=== PATIENT | male | born 1940 | race Caucasian/White ===

== ENCOUNTER 2019-04-26 13:31 | Day surgery (SDC) | payer MEDICARE, BC ==
[~2019-04-26] VITALS: Ht 180.3 cm; Wt 98.2 kg
[~2019-04-26 13:31] MED LIST: ASPI81EC PO; ATOR40TA PO; BROMFENAC SODIUM OP; Combigan Eye Dro5 ML OP; ERGO400 PO; FOLI1; LEVSOD100 PO; METTREX2.5; Methotrexa25 MG/1 ML; OMEPRAZOLE20 MG PO; PRED1SU BOTHEYES; ROSU10TA PO; SYNTHROID150 MC1 PO
--- NOTE | 2019-04-26 16:49 | NUR ---
04/26/19 9802 Vivi Stoner INJECTED 3 MLS NS INTO BX PORT PER ORDER FOR POLYPECTOMY
== END 2019-04-26 17:19 | disposition home or self-care (01) ==
LOC: ORSCSDS 13:31
PROVIDERS: Internal Medicine Gastroenterology
PROC: 0DBH8ZX Excision of Cecum, Via Natural or Artificial Opening Endoscopic, Diagnostic (ICD-10-PCS; principal; 2019-04-26 15:15)
PROC: 0DBL8ZX Excision of Transverse Colon, Via Natural or Artificial Opening Endoscopic, Diagnostic (ICD-10-PCS; principal; 2019-04-26 15:15)
DX: Z86.010 Personal history of colon polyps (principal); Z12.11 Encounter for screening for malignant neoplasm of colon; D12.0 Benign neoplasm of cecum; D12.3 Benign neoplasm of transverse colon; D12.4 Benign neoplasm of descending colon; K57.30 Diverticulosis of large intestine without perforation or abscess without bleeding; K64.8 Other hemorrhoids; K21.9 Gastro-esophageal reflux disease without esophagitis; E03.9 Hypothyroidism, unspecified; E78.5 Hyperlipidemia, unspecified; Z79.899 Other long term (current) drug therapy; Z79.82 Long term (current) use of aspirin
CPT/HCPCS: 88305; J2704; J7120

== ENCOUNTER → 2019-08-14 | Outpatient (CLI) | payer MEDICARE, BC | END | disposition home or self-care (01) | LOC: LAB SHORT 15:56 → PLD 15:56 | DX: D48.5 Neoplasm of uncertain behavior of skin (principal) | CPT/HCPCS: 88305 ==

== ENCOUNTER 2020-05-20 12:00 | Day surgery (SDC) | payer MEDICARE, BC ==
[~2020-05-20] VITALS: Ht 177.8 cm; Wt 98.2 kg
[~2020-05-20 12:00] MED LIST changes: +Aspir 8181 MG PO
--- NOTE | 2020-05-20 13:31 | NUR ---
05/20/20 1331 FABIAN WYNN DELAY IN START OF CASE DUE TO PRIOR CASE RUNNING LONG. PT NOTIFIED AND PROVIDED WARM BLANKET. ALL QUESTIONS ASKED AND ANSWERED
--- NOTE | 2020-05-20 14:48 | NUR ---
05/20/20 1448 Julia Hutchison 3 ML NACL USED FOR POLYP REMOVAL
== END 2020-05-20 15:14 | disposition home or self-care (01) ==
LOC: ORSCSDS 12:00
PROVIDERS: Internal Medicine Gastroenterology
PROC: 0DBH8ZX Excision of Cecum, Via Natural or Artificial Opening Endoscopic, Diagnostic (ICD-10-PCS; principal; 2020-05-20 13:15)
PROC: 0DBK8ZX Excision of Ascending Colon, Via Natural or Artificial Opening Endoscopic, Diagnostic (ICD-10-PCS; principal; 2020-05-20 13:15)
PROC: 0DBL8ZX Excision of Transverse Colon, Via Natural or Artificial Opening Endoscopic, Diagnostic (ICD-10-PCS; principal; 2020-05-20 13:15)
DX: Z86.010 Personal history of colon polyps (principal); D12.0 Benign neoplasm of cecum; D12.2 Benign neoplasm of ascending colon; D12.3 Benign neoplasm of transverse colon; K64.8 Other hemorrhoids; K57.30 Diverticulosis of large intestine without perforation or abscess without bleeding; I10 Essential (primary) hypertension; E78.5 Hyperlipidemia, unspecified; E03.9 Hypothyroidism, unspecified; Z79.899 Other long term (current) drug therapy; Z79.82 Long term (current) use of aspirin
CPT/HCPCS: 88305; J2704; J7120

== ENCOUNTER → 2020-06-30 | Outpatient (CLI) | payer MEDICARE, BC ==
[~2020-06-30] MED LIST changes: +ATOR20 PO; +EZET10 PO; +IBUP200 PO; +LATA.005SO BOTHEYES; +LEVSOD150 PO; +METHOTREXATE2.5 MG; +OMEP20ER PO; +TIMDOROPSO LEFTEYE; +[UNRECOGNIZED DRUG - REMARK] PO
[2020-06-30 10:16] LABS: BASOPHILS ABSOLUTE AUTO 0.05 K/mm3 (0.00-0.23); BASOPHILS PERCENT AUTO 1 % (0-2); EOSINOPHILS ABSOLUTE AUTO 0.19 K/mm3 (0.00-0.68); EOSINOPHILS PERCENT AUTO 3 % (0-6); Hemoglobin 14.3 g/dL (13.5-17.5); IMMATURE GRAN ABSOLUTE AUTO 0.04 K/mm3 (0.00-0.10); IMMATURE GRAN PERCENT AUTO 1 % (0-1); LYMPHOCYTES ABSOLUTE AUTO 1.65 K/mm3 (0.84-5.20); LYMPHOCYTES PERCENT AUTO 28 % (21-46); MONOCYTES ABSOLUTE AUTO 0.42 K/mm3 (0.16-1.47); MONOCYTES PERCENT AUTO 7 % (4-13); Mean Corpuscular HGB 33.2 pg (26.0-34.0); Mean Corpuscular Volume 97 fL (80-100); Mean Platelet Volume 11.2 fL (9.1-12.4); NEUTROPHILS ABSOLUTE AUTO 3.58 K/mm3 (1.96-9.15); NEUTROPHILS PERCENT AUTO 60 % (41-73); Platelet Count 198 K/mm3 (150-400); RDW Coefficient Variation 13.2 % (11.7-14.2); RDW Standard Deviation 46.6 fL (35.1-46.3); Red Blood Cell Count 4.31 M/mm3 (4.30-5.90); White Blood Cell Count 5.93 K/mm3 (4.00-11.30)
[2020-06-30 10:32] LABS: Alanine Aminotransfer (ALT/SGP 38 U/L (12-78); Albumin/Globulin Ratio 1.5 (0.8-1.8); Alk Phos 64 U/L (40-126); Anion Gap 7 mmol/L (6-16); Aspartate Aminotrans (AST/SGOT 19 U/L (12-37); Bilirubin, Total 0.7 mg/dL (0.1-1.0); Blood Urea Nitrogen 12 mg/dL (8-24); Bun/Creatinine Ratio 13.2 (12.0-20.0); CO2, Blood 29 mmol/L (21-32); Chloride, Blood 104 mmol/L (98-108); Creatinine, Blood 0.91 mg/dL (0.60-1.20); Globulin, Blood 2.7 g/dL (2.2-4.0); Glomerular Filtration Rate >60 (60-); Glucose, Blood 99 mg/dL (70-99); Potassium, Blood 4.4 mmol/L (3.5-5.5); Sodium, Blood 140 mmol/L (136-145); Total Protein, Blood 6.7 g/dL (6.4-8.2)
== END | disposition home or self-care (01) ==
LOC: LAB SHORT 09:56
PROVIDERS: Internal Medicine Rheumatology
DX: M05.79 Rheumatoid arthritis with rheumatoid factor of multiple sites without organ or systems involvement (principal)
CPT/HCPCS: 36415; 80053; 85025; 86140

== ENCOUNTER 2020-08-08 08:13 | Day surgery (SDC) | payer MEDICARE, BC ==
[~2020-08-08] VITALS: Ht 177.8 cm; Wt 100.7 kg
--- NOTE | 2020-08-08 09:40 | NUR ---
Ambulatory in Day Surgery History, Chart, Medications and Allergies reviewed before start of procedure. Lungs clear T/O to Auscultation. Pre-Op teaching done. Pt verbalizes understanding.
--- NOTE | 2020-08-08 12:43 | NUR ---
08/08/20 1243 Ej Wadsworth SCHEDULED FOR BILATERAL BUT ONLY NEEDED RIGHT INGUINAL REPAIR
== END 2020-08-08 23:48 | disposition home or self-care (01) ==
LOC: ORSCMMR 08:13
PROVIDERS: Surgery
PROC: 8E0W4CZ Robotic Assisted Procedure of Trunk Region, Percutaneous Endoscopic Approach (ICD-10-PCS; principal; 2020-08-08 10:00)
PROC: 0YU54JZ Supplement Right Inguinal Region with Synthetic Substitute, Percutaneous Endoscopic Approach (ICD-10-PCS; principal; 2020-08-08 10:00)
DX: K40.90 Unilateral inguinal hernia, without obstruction or gangrene, not specified as recurrent (principal); K21.9 Gastro-esophageal reflux disease without esophagitis; Z79.899 Other long term (current) drug therapy
CPT/HCPCS: 49650; S2900; C1781; J0690; J1100; J1885; J2250; J2405; J2704; J2710; J3010; J7120

== ENCOUNTER 2021-05-26 07:47 | Day surgery (SDC) | payer MEDICARE, BC ==
[~2021-05-26] VITALS: Ht 177.8 cm; Wt 98.5 kg
[~2021-05-26 07:47] MED LIST changes: +AMOCLA875 PO; -METHOTREXATE2.5 MG; +METHOTREXATE2.5 MG SC
--- NOTE | 2021-05-26 08:35 | NUR ---
History, Chart, Medications and Allergies reviewed before start of procedure. Patient states colon prep results clear. Patient States Post-Procedure ride home has been arranged.
--- NOTE | 2021-05-26 10:09 | NUR ---
Patient up to Ambulate independently. Gait steady. Discharge instructions reviewed with patient. Patient verbalizes understanding. Copy given to patient to take home. Discharged via wheelchair to private car for ride home.
--- NOTE | 2021-05-28 07:56 | NUR ---
05/28/21 0756 Valerie Joseph History, Chart, Medications and Allergies reviewed before start of procedure. Patient confirms NPO status and agrees with scheduled surgery. 3-LEAD EKG REVIEWED WITH PHYSICIAN PRIOR TO START OF PROCEDURE. MONITOR INTACT WITH CONTINUOUS PULSE OXIMETRY AND INTERMITTENT BP. PATIENT DETERMINED TO BE ASA APPROPRIATE FOR PROPOFOL SEDATION PRIOR TO START OF PROCEDURE BY DR. LU
== END 2021-05-26 22:50 | disposition home or self-care (01) ==
LOC: ORSCMMR 07:47 → ORD 09:00 → ORSCSDS 09:00 → ORSCMMR 22:50
PROVIDERS: Internal Medicine Gastroenterology
PROC: 0DJD8ZZ Inspection of Lower Intestinal Tract, Via Natural or Artificial Opening Endoscopic (ICD-10-PCS; principal; 2021-05-26 09:00)
DX: K61.0 Anal abscess (principal); Z86.010 Personal history of colon polyps; K21.9 Gastro-esophageal reflux disease without esophagitis; I10 Essential (primary) hypertension; E78.5 Hyperlipidemia, unspecified; Z87.891 Personal history of nicotine dependence; Z79.899 Other long term (current) drug therapy
CPT/HCPCS: J2704; J7120

== ENCOUNTER 2021-08-04 11:54 | Day surgery (SDC) | payer MEDICARE, BC ==
[~2021-08-04] VITALS: Ht 180.3 cm; Wt 98.6 kg
[2021-08-04] MEDS ORDERED: ASPI81CH (12:25)
[2021-08-04] MEDS ORDERED: EUTHYROX50 MCG (12:29)
[2021-08-04] MEDS ORDERED: METTREX2.5 (12:30)
== END 2021-08-04 15:57 | disposition home or self-care (01) ==
LOC: ORSCSDS 11:54
PROVIDERS: Internal Medicine Gastroenterology
PROC: 0DJD8ZZ Inspection of Lower Intestinal Tract, Via Natural or Artificial Opening Endoscopic (ICD-10-PCS; principal; 2021-08-04 13:15)
DX: Z12.11 Encounter for screening for malignant neoplasm of colon (principal); Z86.010 Personal history of colon polyps; K57.30 Diverticulosis of large intestine without perforation or abscess without bleeding; K64.4 Residual hemorrhoidal skin tags; K64.8 Other hemorrhoids; E78.5 Hyperlipidemia, unspecified; I10 Essential (primary) hypertension; K21.9 Gastro-esophageal reflux disease without esophagitis; E03.9 Hypothyroidism, unspecified; Z87.891 Personal history of nicotine dependence; Z79.899 Other long term (current) drug therapy
CPT/HCPCS: J0461; J2405; J2704; J7120

== ENCOUNTER 2022-06-09 08:15 | Day surgery (SDC) | payer MEDICARE, BC ==
[~2022-06-09] VITALS: Ht 180.3 cm; Wt 102.0 kg
[~2022-06-09 08:15] MED LIST changes: +ASPI81CH; +EUTHYROX50 MCG
[2022-06-09] MEDS ORDERED: PANTOPRAZOLE SO40 M2 PO (08:36)
--- NOTE | 2022-06-09 08:42 | NUR ---
06/09/22 0842 Margi Alvarez [address] AT [id number]
== END 2022-06-09 10:28 | disposition home or self-care (01) ==
LOC: ORSCSDS 08:15
PROVIDERS: Ophthalmology
PROC: 08RJ3JZ Replacement of Right Lens with Synthetic Substitute, Percutaneous Approach (ICD-10-PCS; principal; 2022-06-09 09:30)
DX: H25.11 Age-related nuclear cataract, right eye (principal); H40.9 Unspecified glaucoma; Z96.1 Presence of intraocular lens; E03.9 Hypothyroidism, unspecified; E78.00 Pure hypercholesterolemia, unspecified; K21.9 Gastro-esophageal reflux disease without esophagitis; Z79.899 Other long term (current) drug therapy
CPT/HCPCS: J2001; J2250; J3010; J3301; J7040; V2632

== ENCOUNTER → 2025-02-13 | Outpatient (CLI) | payer MEDICARE, BC ==
[~2025-02-13] MED LIST changes: +PANTOPRAZOLE SO40 M2 PO
[2025-02-13 18:14] LABS: BASOPHILS ABSOLUTE AUTO 0.05 K/mm3 (0.00-0.23); BASOPHILS PERCENT AUTO 1 % (0-2); EOSINOPHILS ABSOLUTE AUTO 0.14 K/mm3 (0.00-0.68); EOSINOPHILS PERCENT AUTO 2 % (0-6); Hematocrit 44.0 % (37.0-53.0); Hemoglobin 14.8 g/dL (13.5-17.5); IMMATURE GRAN ABSOLUTE AUTO 0.04 K/mm3 (0.00-0.10); IMMATURE GRAN PERCENT AUTO 1 % (0-1); LYMPHOCYTES ABSOLUTE AUTO 1.52 K/mm3 (0.84-5.20); LYMPHOCYTES PERCENT AUTO 22 % (21-46); MONOCYTES ABSOLUTE AUTO 0.56 K/mm3 (0.16-1.47); MONOCYTES PERCENT AUTO 8 % (4-13); Mean Corpuscular HGB Conc 33.6 g/dL (31.5-36.5); Mean Corpuscular Volume 100 fL (80-100); NEUTROPHILS ABSOLUTE AUTO 4.68 K/mm3 (1.96-9.15); NEUTROPHILS PERCENT AUTO 67 % (41-73); NRBC ABSOLUTE 0.00 K/mm3 (0.00-0.02); NRBC Auto 0.0 /100 WBC (0.0-0.2); Platelet Count 236 K/mm3 (150-400); RDW Coefficient Variation 13.6 % (11.7-14.2); RDW Standard Deviation 50.0 fL (35.1-46.3)
[2025-02-13 19:06] LABS: Alanine Aminotransfer (ALT/SGP 40.0 U/L (12-78); Albumin, Blood 4.1 g/dL (3.4-5.0); Albumin/Globulin Ratio 1.7 (0.8-1.8); Anion Gap 7.0 mmol/L (3-11); Aspartate Aminotrans (AST/SGOT 23.0 U/L (12-37); Bilirubin, Total 0.9 mg/dL (0.1-1.0); Blood Urea Nitrogen 13.0 mg/dL (8-24); CO2, Blood 26.0 mmol/L (21-32); Calcium, Blood 9.0 mg/dL (8.5-10.1); Chloride, Blood 110.0 mmol/L (98-108); Creatinine, Blood 0.81 mg/dL (0.60-1.20); Globulin, Blood 2.4 g/dL (2.2-4.0); Glucose, Blood 111.0 mg/dL (70-99); Potassium, Blood 4.2 mmol/L (3.5-5.5); Sodium, Blood 139.0 mmol/L (136-145); Total Protein, Blood 6.5 g/dL (6.4-8.2)
== END | disposition home or self-care (01) ==
LOC: LAB 14:43 → LAB SHORT 14:43
PROVIDERS: Internal Medicine Rheumatology
DX: M06.89 Other specified rheumatoid arthritis, multiple sites (principal)
CPT/HCPCS: 80053; 85025; 85651

== ENCOUNTER → 2025-06-26 | Outpatient (CLI) | payer MEDICARE, BC ==
[2025-06-26 19:27] LABS: Campylobacter Sp Not Detected (NOT DETECT); E. Coli O157 Not Detected (NOT DETECT); Enteroaggregative E. coli-EAEC Not Detected (NOT DETECT); Enteropathogenic E. coli-EPEC Not Detected (NOT DETECT); Enterotoxigenic E. coli-ETEC Not Detected (NOT DETECT); Salmonella Sp Not Detected (NOT DETECT); Shiga Toxin-prod E. coli-STEC Not Detected (NOT DETECT); Shigella/Enteroin E. coli-EIEC Not Detected (NOT DETECT); Vibrio Sp Not Detected (NOT DETECT)
== END | disposition home or self-care (01) ==
LOC: LAB SHORT 02:00 → LAB 02:00
PROVIDERS: Family Medicine
DX: R19.7 Diarrhea, unspecified (principal)
CPT/HCPCS: 87507

== ENCOUNTER → 2025-07-16 | Outpatient (CLI) | payer MEDICARE, BC | END | disposition home or self-care (01) | LOC: LAB SHORT 15:50 → LAB 15:50 | DX: R10.24 Suprapubic pain (principal) | CPT/HCPCS: 87086 ==